=== PATIENT | female | born 1950 | race Caucasian/White ===

== ENCOUNTER → 2017-12-09 | Outpatient (CLI) | payer OTHER ==
[~2017-12-09] MED LIST: CLONIDINE0.1 PO; HYDROCHLOROTHIA25 M1 PO; LEVOXYL137 MCG PO; LOPRESSOR25; MOBIC7.5 MG PO
== END ==
LOC: M.RAD 14:49
DX: M47.894 Other spondylosis, thoracic region (principal); G89.29 Other chronic pain; M25.78 Osteophyte, vertebrae

== ENCOUNTER 2018-01-20 21:24 | Emergency (ER) | payer OTHER ==
[~2018-01-20] VITALS: Ht 167.6 cm; Wt 90.7 kg
[2018-01-20] MEDS ORDERED: LEVOXYL137 MCG PO (21:34)
[2018-01-20] MEDS ORDERED: LOPRESSOR25 (21:34)
[2018-01-20] MEDS ORDERED: MOBIC7.5 MG PO (21:36)
[2018-01-20 21:56] LABS: ABSOLUTE BASOPHILS 0.1 thou/uL (0.0-0.2); ABSOLUTE EOSINOPHILS 0.3 thou/uL (0.0-0.7); ABSOLUTE LYMPHOCYTES 2.9 thou/uL (0.8-5.3); ABSOLUTE MONOCYTES 0.7 thou/uL (0.0-1.2); ABSOLUTE NEUTROPHILS 4.2 thou/uL (1.6-8.1); BASOPHILS 0.9 %; EOSINOPHILS 3.2 %; HEMATOCRIT 41.3 % (37.0-47.0); LYMPHOCYTES 35.8 %; MCH 31.4 pg (26.0-34.0); MCV 92.2 fL (80.0-100.0); MONOCYTES 8.2 %; MPV 9.4 fl. (7.2-11.1); NUCLEATED RBCS 0 /100WBC; PLATELET COUNT* 168 thou/uL (150-400); POLYS 51.9 %; RBC 4.48 mil/uL (4.20-5.00); RDW-CV 13.5 % (10.5-14.5); WBC 8.1 thou/uL (4.0-11.0)
[2018-01-20 22:04] LABS: ANION GAP 8 mmol/L (7-16); BUN 22 mg/dL (7-18); CALCIUM 8.9 mg/dL (8.5-10.1); CHLORIDE 107 mmol/L (98-107); CO2 26 mmol/L (21-32); CREATININE 0.8 mg/dL (0.6-1.3); GLUCOSE 113 mg/dL (70-99); SODIUM 141 mmol/L (136-145)
[2018-01-20 22:05] LABS: URINE BILIRUBIN NEGATIVE (Negative); URINE BLOOD 1+ (Negative); URINE CLARITY CLEAR; URINE COLOR YELLOW; URINE GLUCOSE-RANDOM NEGATIVE (Negative); URINE KETONES NEGATIVE (Negative); URINE LEUKOCYTES-REFLEX NEGATIVE (Negative); URINE NITRITE-REFLEX NEGATIVE (Negative); URINE PROTEIN NEGATIVE (Negative); URINE SPECIFIC GRAVITY 1.025 (1.005-1.030); URINE UROBILINOGEN 0.2 E.U./dl (0.2-1.0)
[2018-01-20 22:11] LABS: ALBUMIN 3.5 g/dL (3.4-5.0); ALKALINE PHOSPHATASE 75 U/L (46-116); SGOT 29 U/L (15-37); SGPT 33 U/L (30-65); TOTAL BILIRUBIN 0.5 mg/dL (<0.1-1.0); TROPONIN-I LEVEL <0.06 ng/mL (<0.06)
[2018-01-20 22:11] LABS: BACTERIA-REFLEX 1-9 Few /HPF (None Seen); CASTS None Seen /LPF (None Seen); CRYSTALS None Seen /LPF (None Seen); MUCUS 0-3 Light strn/LPF (None Seen); SQUAMOUS 0-3 Few /LPF (0-3); TRANSITIONAL EPITHEL CELL 0-3 Few /LPF (None Seen); URINE RBC 3-10 Few /HPF (0-2); URINE WBC-REFLEX None Seen /HPF (0-5)
[2018-01-20] MEDS ORDERED: CLONIDINE0.1 PO (23:54)
[2018-01-20] MEDS ORDERED: HYDROCHLOROTHIA25 M1 PO (23:54)
[2018-01-21] VITALS: BP 135/51
--- NOTE | 2018-01-21 12:09 | EKG ---
[place] [address] ELECTROCARDIOGRAM REPORT Name: JANEY MURILLO [id number] Admission: 01/20/18 Attend Phys: Discharge: 01/21/18 Date of : 52 Report #: [id number] THIS REPORT FOR: //name// [facility] ED Test Date: 2018-01-20 Test Time: 22:06:50 Pat Name: JANEY MURILLO Department: Room: Gender: F [employer]ounder [employer]: CRYSTAL : 1950 Requested By: Andreea Gibson Order Number: [id number] MD: Gio Rg Measurements Intervals [place] Rate: 69 P: 39 MO: 177 QRS: -11 QRSD: 91 T: 71 QT: 397 QTc: 426 Interpretive Statements Sinus rhythm Probable left atrial enlargement Left ventricular hypertrophy consider Inferior infarct, old Baseline wander in lead(s) V1,V2 No previous ECG available for comparison Electronically Signed On 01-21-2018 12:09:22 CDT by Gio Rg [email or web address] <ELECTRONICALLY SIGNED> By: Gio Rg MD, [facility] 01/21/18 1209 05 05 Gio Rg MD, [facility] /EPI
== END 2018-01-21 00:05 | disposition home or self-care (01) ==
LOC: M.ERS 21:24
PROVIDERS: Personal Emergency Response Attendant
DX: I16.0 Hypertensive urgency (principal); E03.9 Hypothyroidism, unspecified; Z88.2 Allergy status to sulfonamides

== ENCOUNTER → 2019-09-18 | Outpatient (CLI) | payer OTHER | LOC: M.RAD 09:40 | DX: M19.041 Primary osteoarthritis, right hand (principal); M19.042 Primary osteoarthritis, left hand; M65.342 Trigger finger, left ring finger; M65.341 Trigger finger, right ring finger ==